=== PATIENT | male | born 1990 | race Caucasian/White ===

== ENCOUNTER 2020-12-29 15:09 | Emergency (ER) | payer MEDICAID, OTHER ==
[~2020-12-29] VITALS: Ht 167.6 cm; Wt 90.0 kg
[2020-12-29] MEDS ORDERED: KETOROLAC 60MG/2ML VIAL IM ONE (18:15)
[2020-12-29] MEDS ORDERED: CEFTRIAXONE SODIUM 1 G/VIAL IM ONE (18:15)
[2020-12-29] MEDS ORDERED: ACETAMINOPHEN 325MG TABLET PO ONE (18:15)
[2020-12-29] MEDS ORDERED: DEXAMETHASONE 10 MG/ML VIAL IM ONE (18:15)
[2020-12-29 19:27] VITALS: BP 121/73
[2020-12-29] MEDS ORDERED: PENI250T2 MT (19:38)
[2020-12-29] MEDS ORDERED: IBUP-2028 MT (19:38)
== END 2020-12-29 20:21 | disposition home or self-care (01) ==
LOC: ER 15:09
DX: J02.0 Streptococcal pharyngitis (principal); F17.200 Nicotine dependence, unspecified, uncomplicated; H92.02 Otalgia, left ear
CPT/HCPCS: 87430; 96372; 99284; J0696; J1100; J1885